=== PATIENT | male | born 1960 | race Caucasian/White ===

== ENCOUNTER 2016-12-08 11:36 | Emergency (ER) | payer BC ==
[2016-12-08] MEDS ORDERED: Aspirin Low Dose CHEW TAB* 81 MG PO ONE (12:21)
[2016-12-08 13:11] LABS: Hematocrit 45 % (42-52); Hemoglobin 15.2 g/dl (14.0-18.0); Mean Corpuscular HGB Conc 34 g/dl (31-36); Mean Corpuscular Hemoglobin 34 pg (27-31); Mean Corpuscular Volume 100 fL (80-94); Mean Platelet Volume 8 um3 (7.4-10.4); Red Blood Count 4.48 10^6/ul (4.0-5.4); Red Cell Distribution Width 13 % (10.5-15); White Blood Count 5.5 10^3/ul (3.5-10.8)
--- NOTE | 2016-12-08 13:12 | RAD ---
Indication: Chest pain. Sensation of something in the throat. Profuse diaphoresis. Comparison: November 14, 2012 chest radiograph and September 30, 2010 CT. Technique: Upright AP 1240 hours Report: Clear lungs and pleural spaces. Negative for pneumothorax. The heart, pulmonary vasculature, and mediastinal contours are unremarkable. Unremarkable osseous structures and soft tissue contours. IMPRESSION: No evidence for acute intrathoracic disease.
[2016-12-08 13:15] LABS: Add Diff/Slide Review? Slide Review Added; Comments Flag Yes
[2016-12-08 13:26] LABS: Albumin 3.8 g/dL (3.2-5.2); BUN/Creatinine Ratio 11.1 (8-20); Calcium 8.9 mg/dL (8.6-10.3); EGFR African American 113.1 (>60); EGFR Non-African American 87.9 (>60); Globulin 3.4 g/dL (2-4); Magnesium 1.9 mg/dL (1.9-2.7); Total Bilirubin 0.8 mg/dL (0.2-1.0); Total Protein 7.2 g/dL (6.4-8.9)
[2016-12-08 13:28] LABS: Troponin I 0.01 ng/mL (<0.04)
[2016-12-08 13:53] LABS: TSH (Thyroid Stimulating Horm) 2.37 mcIU/mL (0.34-5.60)
[2016-12-08 14:56] LABS: T4 4.68 mcg/mL (6.09-12.23)
[2016-12-08 16:20] VITALS: BP 153/85
--- NOTE | 2016-12-08 20:45 | ED ---
Terry Avila Billy, scribed for Ulises Eugene MD on 12/08/16 at 1219 . HPI Chest Pain - HPI Summary HPI Summary: Patient is a 56 year-old male coming to [facility] for evaluation of sternal chest pressure this morning at 1030. The pressure is non-radiating. Positive diaphoresis, denies shortness of breath, nausea, or vomiting. He states that the symptoms felt similar to previous episodes of GERD, although he normally does not have diaphoresis with GERD. The symptoms lasted until he was picked up by the ambulance. He was given 3x ASA en route. At this time, the pressure has completely resolved, but it was 3/10 severity at onset. PMHx is significant for previous MD in 2010. - History of Current Complaint Chief Complaint: EDChestPainROMI Time Seen by Provider: 12/08/16 12:12 Hx Obtained From: Patient Onset/Duration: Started Hours Ago Time of Onset: 10:30 Timing: Lasting Minutes Initial Severity: Moderate Chest Pain Location: Mid Sternal Chest Pain Radiates: No Character: Pressure/Squeezing Aggravating Factor(s): Nothing Alleviating Factor(s): Spontaneous Resolution Associated Signs and Symptoms: Positive: Chest Pain, Diaphoresis. Negative: Shortness of Breath, Nausea, Vomiting - Allergy/Home Medications Allergies/Adverse Reactions: Allergies Allergy/AdvReac Type Severity Reaction Status Date / Time No Known Allergies Allergy Verified 07/30/12 11:49 PMH/Surg Hx/FS Hx/Imm Hx Endocrine/Hematology History: Reports: Hx Anticoagulant Therapy Denies: Hx Diabetes, Hx Thyroid Disease Cardiovascular History: Reports: Hx Myocardial Infarction Denies: Hx Hypertension, Hx Pacemaker/ICD Respiratory History: Reports: Hx Chronic Obstructive Pulmonary Disease (COPD), Other Respiratory Problems/Disorders - COPD Denies: Hx Asthma GI History: Reports: Hx Gastroesophageal Reflux Disease History: Denies: Hx Renal Disease Neurological History: Denies: Hx Dementia, Hx Seizures Psychiatric History: Denies: Hx Substance Abuse Infectious Disease History: No Infectious Disease History: Denies: Hx Hepatitis, Hx Human Immunodeficiency Virus (HIV), Traveled Outside the [place] in Last 30 Days - Family History Known Family History: Positive: Diabetes - Social History Alcohol Use: Occasionally Substance Use Type: Reports: None Smoking Status (MU): Current Every Day Smoker Review of Systems Positive: Skin Diaphoresis Positive: Chest Pain Negative: Shortness Of Breath Negative: Vomiting, Nausea All Other Systems Reviewed And Are Negative: Yes Physical Exam - Summary Physical Exam Summary: VITAL SIGNS: Reviewed. GENERAL: Patient is a well developed and nourished female who is lying comfortable in the stretcher. Patient is not in any acute respiratory distress. HEAD AND FACE: No signs of trauma. No ecchymosis, hematomas or skull depressions. No sinus tenderness. EYES: PERRLA, EOMI x 2, No injected conjunctiva, no nystagmus. EARS: Hearing grossly intact. Ear canals and tympanic membranes are within normal limits. MOUTH: Oropharynx within normal limits. NECK: Supple, trachea is midline, no adenopathy, no JVD, no carotid bruit, no c- spine tenderness, neck with full ROM. CHEST: Symmetric, no tenderness at palpation LUNGS: Clear to auscultation bilaterally. No wheezing or crackles. CVS: Regular rate and rhythm, S1 and S2 present, no murmurs or gallops appreciated. ABDOMEN: Soft, non-tender. No signs of distention. No rebound no guarding, and no masses palpated. Bowel sounds are normal. EXTREMITIES: FROM in all major joints, no edema, no cyanosis or clubbing. NEURO: Alert and oriented x 3. No acute neurological deficits. Speech is normal and follows commands. SKIN: Dry and warm Triage Information Reviewed: Yes Vital Signs On Initial Exam: Initial Vitals Temp Pulse Resp BP Pulse Ox 98 F 72 18 144/72 100 12/08/16 11:36 12/08/16 11:36 12/08/16 11:36 12/08/16 11:36 12/08/16 11:36 Vital Signs Reviewed: Yes Diagnostics - Vital Signs Vital Signs Temp Pulse Resp BP Pulse Ox 12/08/16 11:36 98 F 72 18 144/72 100 - Laboratory Lab Results: Lab Results 12/08/16 12/08/16 12/08/16 Range/Units 12:55 12:55 12:55 WBC 5.5 (3.5-10.8) 10^3/ul RBC 4.48 (4.0-5.4) 10^6/ul Hgb 15.2 (14.0-18.0) g/dl Hct 45 (42-52) % MCV 100 H (80-94) fL MCH 34 H (27-31) pg MCHC 34 (31-36) g/dl RDW 13 (10.5-15) % Plt Count 98 L (150-450) 10^3/ul MPV 8 (7.4-10.4) um3 Neut % (Auto) 66.8 (38-83) % Lymph % (Auto) 24.0 L (25-47) % [place] % (Auto) 7.8 (1-9) % Eos % (Auto) 0.7 (0-6) % Baso % (Auto) 0.7 (0-2) % Absolute Neuts (auto) 3.7 (1.5-7.7) 10^3/ul Absolute Lymphs (auto) 1.3 (1.0-4.8) 10^3/ul Absolute Monos (auto) 0.4 (0-0.8) 10^3/ul Absolute Eos (auto) 0 (0-0.6) 10^3/ul Absolute Basos (auto) 0 (0-0.2) 10^3/ul Absolute Nucleated RBC 0 10^3/ul Nucleated RBC % 0 INR (Anticoag Therapy) 0.90 (0.89-1.11) APTT 29.3 (26.0-36.3) seconds Sodium 132 L (133-145) mmol/L Potassium 4.0 (3.5-5.0) mmol/L Chloride 105 (101-111) mmol/L Carbon Dioxide 26 (22-32) mmol/L Anion Gap 1 L (2-11) mmol/L BUN 10 (6-24) mg/dL Creatinine 0.90 (0.67-1.17) mg/dL Est GFR ( Amer) 113.1 (>60) Est GFR (Non-Af Amer) 87.9 (>60) BUN/Creatinine Ratio 11.1 (8-20) Glucose 81 (70-100) mg/dL Lactic Acid (0.5-2.0) mmol/L Calcium 8.9 (8.6-10.3) mg/dL Magnesium 1.9 (1.9-2.7) mg/dL Total Bilirubin 0.80 (0.2-1.0) mg/dL AST 36 (13-39) U/L ALT 21 (7-52) U/L Alkaline Phosphatase 51 (34-104) U/L Total Creatine Kinase 192 (10-223) U/L CK-MB (CK-2) 1.5 (0.6-6.3) ng/mL Troponin I 0.01 (<0.04) ng/mL B-Natriuretic Peptide ( - 100) pg/mL Total Protein 7.2 (6.4-8.9) g/dL Albumin 3.8 (3.2-5.2) g/dL Globulin 3.4 (2-4) g/dL Albumin/Globulin Ratio 1.1 (1-3) TSH 2.37 (0.34-5.60) mcIU/mL Thyroxine (T4) 4.68 L (6.09-12.23) mcg/mL 12/08/16 12/08/16 Range/Units 12:55 12:55 WBC (3.5-10.8) 10^3/ul RBC (4.0-5.4) 10^6/ul Hgb (14.0-18.0) g/dl Hct (42-52) % MCV (80-94) fL MCH (27-31) pg MCHC (31-36) g/dl RDW (10.5-15) % Plt Count (150-450) 10^3/ul MPV (7.4-10.4) um3 Neut % (Auto) (38-83) % Lymph % (Auto) (25-47) % [place] % (Auto) (1-9) % Eos % (Auto) (0-6) % Baso % (Auto) (0-2) % Absolute Neuts (auto) (1.5-7.7) 10^3/ul Absolute Lymphs (auto) (1.0-4.8) 10^3/ul Absolute Monos (auto) (0-0.8) 10^3/ul Absolute Eos (auto) (0-0.6) 10^3/ul Absolute Basos (auto) (0-0.2) 10^3/ul Absolute Nucleated RBC 10^3/ul Nucleated RBC % INR (Anticoag Therapy) (0.89-1.11) APTT (26.0-36.3) seconds Sodium (133-145) mmol/L Potassium (3.5-5.0) mmol/L Chloride (101-111) mmol/L Carbon Dioxide (22-32) mmol/L Anion Gap (2-11) mmol/L BUN (6-24) mg/dL Creatinine (0.67-1.17) mg/dL Est GFR ( Amer) (>60) Est GFR (Non-Af Amer) (>60) BUN/Creatinine Ratio (8-20) Glucose (70-100) mg/dL Lactic Acid 0.7 (0.5-2.0) mmol/L Calcium (8.6-10.3) mg/dL Magnesium (1.9-2.7) mg/dL Total Bilirubin (0.2-1.0) mg/dL AST (13-39) U/L ALT (7-52) U/L Alkaline Phosphatase (34-104) U/L Total Creatine Kinase (10-223) U/L CK-MB (CK-2) (0.6-6.3) ng/mL Troponin I (<0.04) ng/mL B-Natriuretic Peptide 30 ( - 100) pg/mL Total Protein (6.4-8.9) g/dL Albumin (3.2-5.2) g/dL Globulin (2-4) g/dL Albumin/Globulin Ratio (1-3) TSH (0.34-5.60) mcIU/mL Thyroxine (T4) (6.09-12.23) mcg/mL Result Diagrams: 12/08/16 12:55 12/08/16 12:55 Lab Statement: Any lab studies that have been ordered have been reviewed, and results considered in the medical decision making process. - Radiology CXR Xray Interpretation: No Acute Changes Radiology Interpretation Completed By: Radiologist - EKG 1141 EKG Interpretation: sinus bradycardia 58 bpm, no STEMI Chest Pain Course/Dx - Course Assessment/Plan: Patient is a 56 year-old male coming to [facility] for evaluation of sternal chest pressure this morning at 1030. The pressure is non-radiating. Positive diaphoresis, denies shortness of breath, nausea, or vomiting. He states that the symptoms felt similar to previous episodes of GERD, although he normally does not have diaphoresis with GERD. The symptoms lasted until he was picked up by the ambulance. He was given 3x ASA en route. At this time, the pressure has completely resolved, but it was 3/10 severity at onset. PMHx is significant for previous MD in 2010. Test results WNL except for sodium of 132. CXR shows no acute intrathoracic disease. Troponin #1 is 0.01, troponin #2 is 0.01. The patient continues to be asymptomatic. I believe that this patient is dealing with GERD instead of ACS. The patient has a history of MD and he reports that the symptoms today are different from his previous MD. He feels that it is more similar to GERD. Therefore he will be discharged home to follow up with PCP. He was recommended to return to the ED if he develops any other CP , SOB, dizziness, nausea, vomiting. I discussed all the findings and test results with the patient. Patient was instructed to return to the emergency room immediately if any of the symptoms return or worsens. Plan of care was discussed with the patient and understands and agrees. All questions were answered at patient satisfaction. There were no further complaints or concerns. Lung exam before discharge: CTA B/L. Good air exchange. No wheezing or crackles heard. CVS: S1 and S2 present. No murmurs appreciated. Patient is alert and oriented x 3. Patient is hemodynamically stable. Patient will be discharged home with follow up PCP in the next 2-3 days - Chest Pain Differential Diagnosis/HQI/PQRI: Acute MD, ACS, Angina, CHF, Chest Wall, GI Disease, Lower Respiratory Infection - Diagnoses Provider Diagnoses: Chest pain, GERD (gastroesophageal reflux disease) Discharge - Discharge Plan Condition: Stable Disposition: HOME Patient Education Materials: Chest Pain (ED), Gastroesophageal Reflux Disease ( ED) Referrals: Sarita Anderson MD [Primary Care Provider] - The documentation as recorded by the Terry antunez Billy accurately reflects the service I personally performed and the decisions made by me, Ulises Eugene MD.
== END 2016-12-08 16:32 | disposition home or self-care (01) ==
LOC: ED 11:36
DX: R07.9 Chest pain, unspecified (principal); K21.9 Gastro-esophageal reflux disease without esophagitis; I25.2 Old myocardial infarction; Z79.01 Long term (current) use of anticoagulants; J44.9 Chronic obstructive pulmonary disease, unspecified; F17.200 Nicotine dependence, unspecified, uncomplicated
CPT/HCPCS: 36415; 71010; 80053; 82550; 82553; 83605; 83735; 83880; 84436; 84443; 84484; 85025; 85610; 85730; 93005; 99283

== ENCOUNTER 2017-11-20 18:18 | Observation (INO) | payer BC ==
[2017-11-20] MEDS ORDERED: Aspirin 81 mg CHEW TAB* 81 MG TAB.CHEW PO ONE (18:56)
--- NOTE | 2017-11-20 19:14 | RAD ---
HISTORY: Chest pain COMPARISONS: December 08, 2016 VIEWS: 1: frontal portable view of the chest at 7:07 PM FINDINGS: LINES AND TUBES: None. CARDIOMEDIASTINAL SILHOUETTE: The cardiomediastinal silhouette is normal for portable technique. PLEURA: The costophrenic angles are sharp. No pleural abnormalities are noted. LUNG PARENCHYMA: The lungs are clear. ABDOMEN: The upper abdomen is clear. There is no subphrenic gas. BONES AND SOFT TISSUES: No bone or soft tissue abnormalities are noted. IMPRESSION: NO ACTIVE CARDIOPULMONARY DISEASE.
[2017-11-20 19:27] LABS: ABS Basophils 0.1 10^3/ul (0-0.2); ABS Eosinophils 0.1 10^3/ul (0-0.6); ABS Lymphocytes 1.9 10^3/ul (1.0-4.8); ABS Monocytes 0.5 10^3/ul (0-0.8); ABS Nucleated RBC 0 10^3/ul; Eosinophil % 1.5 % (0-6); Hematocrit 44 % (42-52); Hemoglobin 15.5 g/dl (14.0-18.0); Lymphocyte % 34.8 % (25-47); Mean Corpuscular HGB Conc 35 g/dl (31-36); Mean Corpuscular Hemoglobin 35 pg (27-31); Mean Corpuscular Volume 101 fL (80-94); Mean Platelet Volume 7.9 um3 (7.4-10.4); Nucleated Red Blood Cells % 0.1; Platelet Count 120 10^3/ul (150-450); Red Blood Count 4.41 10^6/ul (4.0-5.4); Red Cell Distribution Width 13 % (10.5-15); White Blood Count 5.6 10^3/ul (3.5-10.8)
[2017-11-20 19:40] LABS: EGFR Non-African American 94.9 (>60)
[2017-11-20] MEDS ORDERED: Al Hydrox/Mg Hydrox/Simet LIQ* 30 ML UDC PO PRN (21:14)
[2017-11-20] MEDS ORDERED: Albuterol 2.5 MG/3 ML NEB.SOL* (0.083%) INH PRN (21:14)
[2017-11-20] MEDS ORDERED: Acetaminophen TAB* 325 MG PO PRN (21:14)
[2017-11-20] MEDS ORDERED: Ondansetron INJ* 2 MG/ML VIAL IV PRN (21:14)
[2017-11-20] MEDS ORDERED: Mouth Piece, Nicotine* 1 EACH CARTRIDGE INH PRN (21:39)
--- NOTE | 2017-11-20 23:09 | HP ---
CC: Dr. Anderson; Dr. Rodriguez * HISTORY AND PHYSICAL: DATE OF ADMISSION: 11/20/17 PROVIDER: Shante Phillip NP CARDIOLOGY: Dr. Rodriguez. PRIMARY CARE PHYSICIAN: Dr. Anderson. ATTENDING PHYSICIAN WHILE IN THE HOSPITAL: Dr. Cynthia Roque * (dictated by Shante Phillip NP). CHIEF COMPLAINT: Chest pain. HISTORY OF PRESENT ILLNESS: Mr. Gordon is a 57-year-old male with past medical history significant for coronary artery disease with stenting in 2010, COPD, hyperlipidemia who presented to the emergency room today after developing chest pain at 2 p.m. 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 He denied any diaphoresis, nausea, or vomiting. He reports that the chest pain lasted for approximately 4 hours. The patient denies any other symptoms. He denies any recent sick contacts or recent illnesses. He does report that he has had a cough for the past couple of weeks. It has been productive with clear sputum and he has only had some shortness of breath just today. The patient does have a history of having an TN at age 52 with stenting in 2010. Due to his history and exertional chest pain the patient had today, we were asked by the emergency room to evaluate for admission. PAST MEDICAL HISTORY: Significant for: 1. Coronary artery disease with stenting in 2010. 2. COPD. 3. Hyperlipidemia. PAST SURGICAL HISTORY: 1. Stent placement in 2010. 2. Various hand repairs for lacerations of the fingers. HOME MEDICATIONS: Include: 1. Aspirin 81 mg p.o. daily. 2. [place] 3. 3. Spiriva. 4. Prilosec. 5. Toprol 12.5 mg p.o. daily. 6. Zocor 40 mg p.o. daily. ALLERGIES: He has allergy to PENICILLIN. FAMILY HISTORY: Brothers and sister with stent placement, diabetes. Father with diabetes. No reported cancer. SOCIAL HISTORY: The patient does smoke one and a half packs per day cigarettes. Alcohol: He does drink 6 beers a day. Denies any illicit drug use. He is currently and lives with his . In the event he is unable to make his own medical decisions, his surrogate decision maker is his , Sheryl Gordon. Her phone number is [phone]. He is a full code. REVIEW OF SYSTEMS: There is no documented fever. No significant weight change. There has been no double vision, no ear drainage. He denies any rhinorrhea. He denies any sore throat. He does report having chest pain. He denies any orthopnea or nocturnal dyspnea. Respiratory: He does report a cough x2 weeks with clear sputum production and reports some shortness of breath today. GI: Denies any nausea, vomiting, or diarrhea. Denies any abdominal pain. : Denies any hematuria or dysuria. Neuro: Denies any focal weakness or sensory loss. Eyes: No visual complaints. ENT: No dysphagia. Musculoskeletal: No arthralgias or myalgias. Skin: No rashes or lesions. Psych: Denies any depression or anxiety. PHYSICAL EXAMINATION GENERAL: At this time, Mr. Gordon is sitting on the stretcher in the emergency room. He does not appear to be in any acute distress. VITAL SIGNS: Temperature was 98.1, heart rate was 73, respirations 12, O2 saturations 96%, blood pressure 110/62. HEENT: Head is atraumatic, normocephalic. Eyes EOMs are intact. Sclerae anicteric and not pale. Oral mucosa appeared to be moist. NECK: Supple. LUNGS: Clear to auscultation bilaterally. No wheezes, rales, or rhonchi. CARDIAC: S1, S2. Regular rate and rhythm. There are no murmurs, rubs, or gallops. ABDOMEN: Soft and nontender. Bowel sounds are present x4. EXTREMITIES: There is no edema. Pulses are +2 pedal pulses and post tibial pulses bilaterally. He is moving all 4 extremities with 5/5 strength. NEUROLOGIC: He is alert and oriented x3. His speech is clear. There is no focal deficits. SKIN: Intact. LABORATORY DATA: WBCs are 5.6, RBCs are 4.41, hemoglobin was 15.5, hematocrit was 44, platelet count was 120. Sodium 136, potassium 3.9, chloride 104, carbon dioxide was 23, anion gap was 9, BUN 7, creatinine 0.84, ASTs were 40, ALTs were 23, lactic acid was 1.2, troponin was 0.00. Chest x-ray: Radiologist impression: No active cardiopulmonary disease. Lungs are clear. Electrocardiogram: Sinus rhythm at a rate of 64. ASSESSMENT AND PLAN: Mr. Gordon is a 57-year-old gentleman with a past medical history significant for coronary artery disease and stenting in 2010. He presented to the emergency room today with chest pain and some shortness of breath. He will be admitted under observation status for: 1. Chest pain: We will obtain serial troponins. We will get an EKG in the morning and do a nuclear exercise stress test given his history of coronary artery disease with stenting in 2010 and CHRISTY risk score for unstable angina and ST elevation myocardial infarction is 4 giving 20% risk 14 days of all ____ _ new or recurrent myocardial infarction or severe recurrent ischemia requiring urgent revascularization. 2. Coronary artery disease. We will continue on his Toprol 12.5 mg after his nuclear stress. 3. Hyperlipidemia. We will continue him on his Zocor 40 mg p.o. daily. 4. Tobacco abuse. We will place him on a nicotine inhaler. 5. FEN. He can be placed on a heart-healthy, no caffeine diet. 6. Code status. He is a full code. 7. DVT prophylaxis. He will be placed on heparin 5000 units subcu. 8. Disposition. He will be placed inpatient on observation. TIME SPENT: Time spent on this admission was approximately 60 minutes, greater than half that time was spent [id number] with the patient obtaining history and physical, the other half the time was spent going over the plan of care and implementing the plan of care. I have discussed this with my attending, Dr. Cynthia Roque, and she is in agreement with my plan. SHANTE PHILLIP, ROSALIND [id number]/[facility] #: [id number] BAMBI
[2017-11-20] MEDS: Heparin VIAL(*) 5000 UNITS/ML VIAL (FIVE THOUSAND) SUBCUT SCH (23:20)
[2017-11-20] MEDS: Nicotine Inhaler* 10 MG AMP INH PRN (23:21)
[2017-11-21] MEDS: Heparin VIAL(*) 5000 UNITS/ML VIAL (FIVE THOUSAND) SUBCUT SCH ×2 (05:29→14:18)
[2017-11-21 05:44] LABS: ABS Basophils 0 10^3/ul (0-0.2); ABS Eosinophils 0.1 10^3/ul (0-0.6); ABS Lymphocytes 1.7 10^3/ul (1.0-4.8); ABS Monocytes 0.5 10^3/ul (0-0.8); ABS Neutrophils 3.5 10^3/ul (1.5-7.7); ABS Nucleated RBC 0 10^3/ul; Eosinophil % 1.9 % (0-6); Hematocrit 45 % (42-52); Hemoglobin 15.5 g/dl (14.0-18.0); Lymphocyte % 29.2 % (25-47); Mean Corpuscular HGB Conc 35 g/dl (31-36); Mean Corpuscular Hemoglobin 35 pg (27-31); Mean Corpuscular Volume 101 fL (80-94); Mean Platelet Volume 8.3 um3 (7.4-10.4); Nucleated Red Blood Cells % 0; Platelet Count 117 10^3/ul (150-450); Red Blood Count 4.44 10^6/ul (4.0-5.4); Red Cell Distribution Width 13 % (10.5-15); White Blood Count 5.9 10^3/ul (3.5-10.8)
[2017-11-21 06:05] LABS: EGFR Non-African American 68.8 (>60)
[2017-11-21 07:59] VITALS: BP 107/63
[2017-11-21] MEDS ORDERED: Metoprolol Succinate XL TAB* 25 MG PO SCH (09:00)
[2017-11-21] MEDS ORDERED: Spiriva Inhaler DEVICE* 1 EACH DEVICE INH ONE (09:00)
[2017-11-21] MEDS ORDERED: Aspirin EC TAB* 81 MG TAB.EC PO SCH (09:00)
[2017-11-21] MEDS ORDERED: Omeprazole CAP* 20 MG PO SCH (09:00)
[2017-11-21] MEDS ORDERED: Tiotropium CAP.INH* CAP.INH/18 MCG (USE ORDER SET !) INH SCH (09:00)
[2017-11-21] MEDS: Nicotine Inhaler* 10 MG AMP INH PRN ×2 (09:37→14:22)
--- NOTE | 2017-11-21 13:07 | RAD ---
Edited for charges. INDICATION: Chest pain, shortness of breath, hypertension, elevated cholesterol , tobacco use, family history of heart disease. COMPARISON: January 20, 2012 TECHNIQUE: 10.500 mCi of Tc-99m Myoview were administered IV. SPECT images of the heart were obtained. Later on the same day. Under the direction of Dr. Rodriguez, an exercise stress test was performed. The patient achieved a peak heart rate of 145 bpm, 88 % of the age- predicted maximum. Subsequently, the patient was given an IV injection of 25.800 mCi Tc- 99m Myoview. SPECT images of the heart were obtained and a gated wall motion study was performed. FINDINGS: Gated wall motion images were obtained at stress and demonstrate wall motion to be within normal limits. The calculated left ventricular ejection fraction is 58 % at stress. Estimated LEFT ventricular end diastolic volume is 87 mL. TID 1.09. Based on review of the attenuation corrected and non corrected images the distribution of radiopharmaceutical within the myocardium on the stress and rest images is within normal limits. No fixed or reversible regions of hypoperfusion evident. IMPRESSION: 1. No evidence for stress induced myocardial ischemia or presence of an infarct. 2. Normal left ventricular wall motion and ejection fraction. ASSESSMENT: Low risk based on nuclear portion. Based on imaging criteria from ACC/AHA 2002 Guideline Update for the Management of Patients With Chronic Stable Angina Table 23. Noninvasive Risk Stratification. MTDD
[2017-11-21] MEDS ORDERED: Atorvastatin* 20 MG TAB PO SCH (21:00)
--- NOTE | 2017-11-22 10:11 | DS ---
AMENDED REPORT NOW INCLUDES COSIGNER DESIGNATION - ESIGNED BEFORE ADJUSTMENTS DISCHARGE SUMMARY: DATE OF ADMISSION: 11/20/17 DATE OF DISCHARGE: 11/21/17 HOSPITAL STATUS: Observation. PROVIDER: Benedicto Love NP. ATTENDING PHYSICIAN: Dr. Ang * (report dictated by Benedicto Love NP). PRIMARY CARE PROVIDER: Dr. Anderson. FLAME HARDENING MACHINE OPERATOR: Dr. Rodriguez. DISCHARGE DIAGNOSES: 1. Chest pain, unknown etiology. 2. Chronic obstructive pulmonary disease. 3. Tobacco abuse. SECONDARY DIAGNOSES: 1. Hyperlipidemia. 2. History of coronary artery disease, status post stenting in 2010. DISCHARGE MEDICATIONS: 1. Aspirin 81 mg p.o. daily. 2. [place] 3 supplementation. 3. Spiriva. 4. Prilosec. 5. Toprol 12.5 mg p.o. daily. 6. Zocor 40 mg p.o. daily. New Medications: 1. Nicotine patch 21 mcg/24 hours, 1 patch transderm daily to either be applied in the morning and removed at night or could wear 24 hours. I discussed this with the patient that leaving it on overnight could cause insomnia and vivid dreams. 2. Nicotine inhaler 10 mg INH q.2 hours p.r.n. HISTORY OF PRESENT ILLNESS AND HOSPITAL COURSE: Please see history and physical by Shante Phillip NP., for full admission details, but in summary, this is an 57- year-old male with a history of coronary artery disease, status post stenting in 2010, COPD and current tobacco abuse, who presented to the emergency department yesterday with complaint of chest pain. 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 Due to his history, he decided to come to the emergency department as it did not resolve. He reported more of a generalized chest tightness and shortness of breath, but denied chest pain or any radiation of pain to his arm or jaw. No diaphoresis, nausea or vomiting. He reported that the pain lasted for approximately 4 hours and due to the fact it did not resolve , he came to the emergency department. He was admitted to the hospitalist service, to the telemetry unit, for chest pain, rule out ACS. His troponins were trended, which were all flat at 0.00. He underwent a nuclear stress test, which placed him at low risk and showed no evidence for stress-induced myocardial ischemia or presence of an infarct, with a normal left ventricular wall motion and ejection fraction. Dr. Rodriguez performed his exercise stress test and reported no ischemic changes noted. I suspect the chest discomfort was more secondary to his COPD, with the exposure to the dust. 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 Initially, he was resistant to smoking cessation; however, on discharge we discussed it again and he agrees to attempt to quit smoking at this time and he has been prescribed long acting nicotine replacement with a patch, as well as a short acting with the inhaler. We discussed referral to [facility] for further smoking cessation education and support; however, he would like to do this through his primary care doctor. His was at the bedside and is supportive of him quitting. Currently, the patient offers no complaints. He has not had any return of chest discomfort. He denied shortness of breath. Occasional cough, but states that he has a cough at his baseline and reports he had a recent upper respiratory illness, but this appears to be resolving. He reports good appetite , no recent fevers or chills. He feels at his baseline and is ready to go home. PHYSICAL EXAMINATION: Vital Signs: Temperature was 98.6, heart rate 73, respirations 16, O2 saturations 94% on room air, blood pressure 107/63. General Appearance: A well-developed 57-year-old male, sitting on the side of the bed, alert and oriented x3, in no acute distress. HEENT: Head is normocephalic, atraumatic. Pupils are anicteric. Oropharynx is clear. Moist mucous membranes. Neck is supple. No JVD noted. Cardiac: S1 and S2. Regular rate and rhythm. No murmurs, rubs, or gallops appreciated. Lungs: Clear to auscultation bilaterally. Good aeration throughout. Abdomen: Soft, nontender, nondistended. Normal bowel sounds throughout. Extremities: No clubbing, cyanosis or edema. Moves all extremities equally. Strength is 5/5 throughout. Neuro: Cranial nerves II through XII are grossly intact. Psych: Appropriate to situation. LABORATORY DATA AND DIAGNOSTIC STUDIES: Sodium 139, potassium 4.1, chloride 104 , carbon dioxide 26, anion gap 9, BUN 14, creatinine 1.11, glucose 89, lactic acid 1.2, calcium 9.1. Troponin 0.00, 0.00, and 0.01. AST 40, ALT 23, total protein 7.5, triglycerides 145, cholesterol 170, LDL 72, HDL 68. Chest x-ray, impression: No active cardiopulmonary disease. EKG: Sinus rhythm at the rate of 70. Nuclear cardiac stress test, impression: 1. No evidence for stress-induced myocardial ischemia or presence of an infarct. 2. Normal left ventricular wall motion ejection fraction. DISCHARGE PLAN: 1. The patient is to follow up with Dr. Anderson within the next week. 2. Smoking cessation. The patient has been given a month of nicotine patches. Per up-to-date guidelines, after 4 to 6 weeks of being on the 21 mcg, he is to be stepped down to the 14 mcg, then 7 mcg over several weeks to months. 3. I discussed with the patient wearing a mask to protect himself from fine dust in the barn with his history of COPD. I discussed with the patient that he most likely is more sensitive to this fine dust and it could increase his risks for exacerbation. TIME SPENT: Approximately 60 minutes were spent on this discharge. BENEDICTO LOVE NP [id number]/[facility] #: [id number] BAMBI
--- NOTE | 2017-11-27 08:48 | ED ---
Louie Avila Jennifer, scribed for Ge Stewart MD on 11/20/17 at 1900 . HPI Chest Pain - HPI Summary HPI Summary: The patient is a 57 year old male who presents with chest tightness for the past 1.5 months. The patient reports the tightness began today at 14:00 but denies any pain in the ED. He explains that walking and working out aggravates the pain. The patient adds that about 1.5 months ago, he sneezed and felt something pop. The patient additionally complains of a productive cough. He denies back pain and pain while breathing. The patient reports he took his baby aspirin today. - History of Current Complaint Chief Complaint: EDChestPainROMI Time Seen by Provider: 11/20/17 18:51 Hx Obtained From: Patient Onset/Duration: Started Weeks Ago - 6 weeks, Still Present Timing: Constant Initial Severity: Moderate Current Severity: Moderate Pain Intensity: 4 Pain Scale Used: 0-10 Numeric Chest Pain Location: Right Lateral Chest Pain Radiates: No Character: Tightness Aggravating Factor(s): Movement - Walking, working out Alleviating Factor(s): Nothing Associated Signs and Symptoms: Positive: Other: - Allergy/Home Medications Allergies/Adverse Reactions: Allergies Allergy/AdvReac Type Severity Reaction Status Date / Time Penicillins Allergy Rash Verified 11/20/17 19:24 Home Medications: Home Medications Aspirin EC TAB* [Ecotrin EC Low Dose 81 MG*] 81 mg PO DAILY 11/20/17 [History Confirmed 11/20/17] Metoprolol Succinate XL TAB* [Toprol XL TAB*] 12.5 mg PO QAM 11/20/17 [History Confirmed 11/20/17] Portage-3 Fatty Acids (Nf) [Fish Oil (NF)] 1,000 mg PO DAILY 11/20/17 [History Confirmed 11/20/17] Omeprazole CAP* [Prilosec CAP* 20 MG] 20 mg PO QAM 11/20/17 [History Confirmed 11/20/17] Simvastatin (NF) [Zocor (NF)] 40 mg PO DAILY 11/20/17 [History Confirmed ] Tiotropium CAP.INH* [Spiriva CAP.INH*] 1 cap.inh INH DAILY 11/20/17 [History Confirmed 11/20/17] PMH/Surg Hx/FS Hx/Imm Hx Endocrine/Hematology History: Reports: Hx Anticoagulant Therapy Denies: Hx Diabetes, Hx Thyroid Disease Cardiovascular History: Reports: Hx Myocardial Infarction, Other Cardiovascular Problems/Disorders - 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 Denies: Hx Hypertension, Hx Pacemaker/ICD Respiratory History: Reports: Hx Chronic Obstructive Pulmonary Disease (COPD), Other Respiratory Problems/Disorders - COPD Denies: Hx Asthma GI History: Reports: Hx Gastroesophageal Reflux Disease History: Denies: Hx Renal Disease Neurological History: Denies: Hx Dementia, Hx Seizures Psychiatric History: Denies: Hx Substance Abuse Infectious Disease History: No Infectious Disease History: Denies: Hx Hepatitis, Hx Human Immunodeficiency Virus (HIV), Traveled Outside the [place] in Last 30 Days - Family History Known Family History: Positive: Diabetes - Social History Alcohol Use: Occasionally Alcohol Amount: 6 pk Substance Use Type: Reports: None Smoking Status (MU): Current Every Day Smoker Review of Systems Negative: Fever, Chills Negative: Erythema Negative: Sore Throat Positive: Chest Pain - Tightness Respiratory: Negative - Pain while breathing Positive: Cough - productive. Negative: Shortness Of Breath Negative: Abdominal Pain, Vomiting, Nausea Negative: dysuria, hematuria Negative: Myalgia, Edema Negative: Rash Neurological: Negative - Dizziness All Other Systems Reviewed And Are Negative: Yes Physical Exam - Summary Physical Exam Summary: Constitutional: Well-developed, Well-nourished, Alert. (-) Distressed Skin: Warm, Dry HENT: Normocephalic; Atraumatic Eyes: Conjunctiva normal Neck: Musculoskeletal ROM normal neck. (-) JVD, (-) Stridor, (-) Tracheal deviation Cardio: Rhythm regular, rate normal, Heart sounds normal; Intact distal pulses; The pedal pulses are 2+ and symmetric. Radial pulses are 2+ and symmetric. (-) Murmur Pulmonary/Chest wall: Effort normal. (-) Respiratory distress, (-) Wheezes, (-) Rales. No reproducible pain. Abd: Soft, (-) Tenderness, (-) Distension, (-) Guarding, (-) Rebound Musculoskeletal: (-) Edema Lymph: (-) Cervical adenopathy Neuro: Alert, Oriented x3 Psych: Mood and affect Normal Triage Information Reviewed: Yes Vital Signs On Initial Exam: Initial Vitals Temp Pulse Resp BP Pulse Ox 98.1 F 73 12 110/62 96 11/20/17 18:24 11/20/17 18:24 11/20/17 18:24 11/20/17 18:24 11/20/17 18:24 Vital Signs Reviewed: Yes Diagnostics - Vital Signs Vital Signs Temp Pulse Resp BP Pulse Ox 11/20/17 18:24 98.1 F 73 12 110/62 96 - Laboratory Result Diagrams: 11/20/17 19:10 11/20/17 19:10 Lab Statement: Any lab studies that have been ordered have been reviewed, and results considered in the medical decision making process. - Radiology CXR Xray Interpretation: No Acute Changes - NO ACTIVE CARDIOPULMONARY DISEASE. Dr. Stewart has reviewed this report. Radiology Interpretation Completed By: Radiologist - EKG 18:23 Cardiac Rate: NL EKG Rhythm: Sinus Rhythm - 64 BPM EKG Interpretation: no STEMI Chest Pain Course/Dx - Course Course Of Treatment: The patient is a 57 year old male who presents with chest tightness for the past 1.5 months. CXR and EKG were obtained. The patient is diagnosed with chest pain unspecified and angina. [place] [facility] [place] - Diagnoses Provider Diagnoses: Chest pain, unspecified, Angina at rest Discharge - Sign-Out/Discharge Documenting (check all that apply): Discharge/Admit/Transfer - Discharge Plan Condition: Good Disposition: ADMITTED TO [facility] Referrals: Sarita Anderson MD [Primary Care Provider] - Additional Instructions: Follow up with your primary care physician in three days. RETURN TO THE EMERGENCY DEPARTMENT FOR CHANGING OR WORSENING SYMPTOMS. The documentation as recorded by the Louie antunez Jennifer accurately reflects the service I personally performed and the decisions made by , Ge Stewart MD.
== END 2017-11-21 15:53 | disposition home or self-care (01) ==
LOC: ED 18:18 → MEDTELE 21:14
PROVIDERS: ADMIT Hospitalist; ATTEND Internal Medicine
DX: R07.9 Chest pain, unspecified (principal); J44.9 Chronic obstructive pulmonary disease, unspecified; F17.210 Nicotine dependence, cigarettes, uncomplicated; E78.5 Hyperlipidemia, unspecified; I25.10 Atherosclerotic heart disease of native coronary artery without angina pectoris; Z95.5 Presence of coronary angioplasty implant and graft; Z79.82 Long term (current) use of aspirin; Z79.899 Other long term (current) drug therapy; Z88.0 Allergy status to penicillin; R94.31 Abnormal electrocardiogram [ECG] [EKG]
CPT/HCPCS: 36415; 71045; 78452; 80048; 80053; 80061; 83605; 84484; 85025; 93005; 93017; 96372; 99284; 99406; A9270-GY; A9502; G0378; J1644

== ENCOUNTER 2019-09-01 08:17 | Emergency (ER) | payer BC ==
[2019-09-01] MEDS ORDERED: diPHENhydraMINE IV* 50 MG/ML 1 ml VIAL (BENADRYL) SLOW PUSH ONE (09:00)
[2019-09-01] MEDS ORDERED: Metoclopramide IV* 5 MG/ML 2 ML VIAL IV SLOW PU ONE (09:00)
--- NOTE | 2019-09-01 09:13 | ED ---
Headache - HPI Summary HPI Summary: Patient is a 59 y/o M presenting to the ED for a chief complaint of diffuse headache that began on 07/30/19. Patient is present with his . Patient rates his headache as a 9/10 in severity and is described as an aching sensation. Movement worsens the headache. He reports pain behind his eyes and bilateral ear aches. Patient also notes nasal congestion, rhinorrhea, occasional right-sided blurred vision, generalized weakness, and abdominal discomfort. Patient denies any fever, chills, erythema of eyes, sore throat, chest pain, shortness of breath, cough, nausea, vomiting, dysuria, hematuria, myalgia, neck pain, jaw pain, edema, rash, lightheadedness, or dizziness. Initially, his severe headaches began a few months ago. He denies any recent falls. His states that he fractured his jaw after a fall in the . At that time, he had an MRI that showed a cluster. In July 2019, he saw an non acoustic operator for his headaches and had a brain CT. He denies seeing a provider for his headaches. PMHx is significant for COPD, but he denies a history of headache or migraines. He admits daily alcohol use of about 10-12 drinks. - History Of Current Complaint Chief Complaint: EDHeadache Stated Complaint: HEADACHE/STOMACH ACHE PER PT Time Seen by Provider: 09/01/19 08:38 Hx Obtained From: Patient, Family/Teaching Supervisor - Onset/Duration: Sudden Onset, Still Present Initially Headache Was: Severe Currently Pain Is: Current Pain Scale(0-10)= - 9/10, Severe Timing: Constant Character: Migraine - Aching Location of Headache: Diffuse Aggravating Factor: Nothing Allevating Factors: Nothing Associated Signs And Symptoms: Visual Changes - Right-sided blurred vision - Allergies/Home Medications Allergies/Adverse Reactions: Allergies Allergy/AdvReac Type Severity Reaction Status Date / Time Penicillins Allergy Rash Verified 09/01/19 08:23 PMH/Surg Hx/FS Hx/Imm Hx Previously Healthy: Yes Endocrine/Hematology History: Reports: Hx Anticoagulant Therapy Denies: Hx Diabetes, Hx Thyroid Disease Cardiovascular History: Reports: Hx Angina, Hx Coronary Artery Disease, Hx Hypercholesterolemia, Hx Myocardial Infarction, Other Cardiovascular Problems/ Disorders - 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 Denies: Hx Hypertension, Hx Pacemaker/ICD, Hx Valvular Heart Disease Respiratory History: Reports: Hx Chronic Obstructive Pulmonary Disease (COPD), Other Respiratory Problems/Disorders - COPD Denies: Hx Asthma GI History: Reports: Hx Gastroesophageal Reflux Disease History: Denies: Hx Renal Disease Sensory History: Reports: Hx Contacts or Glasses Denies: Hx Legally Blind, Hx Deafness, Hx Hearing Aid Opthamlomology History: Reports: Hx Contacts or Glasses Denies: Hx Legally Blind EENT History: Denies: Hx Deafness Neurological History: Denies: Hx Dementia, Hx Seizures Psychiatric History: Denies: Hx Substance Abuse - Surgical History Surgical History: Yes Surgery Procedure, Year, and Place: hands - Immunization History Date of Tetanus Vaccine: unk Date of Influenza Vaccine: none Infectious Disease History: No Infectious Disease History: Denies: Hx Hepatitis, Hx Human Immunodeficiency Virus (HIV), Traveled Outside the [place] in Last 30 Days - Family History Known Family History: Positive: Diabetes - Social History Occupation: Employed Full-time Lives: With Family Alcohol Use: Daily Alcohol Amount: 10-12 beers/day Hx Substance Use: No Substance Use Type: Reports: None Hx Tobacco Use: Yes Smoking Status (MU): Heavy Every Day Tobacco Smoker Type: Cigarettes Review of Systems Negative: Fever, Chills Positive: Blurred Vision - Right eye, Other - Positive bilateral eye pain. Negative: Erythema Positive: Ear Ache - Bilateral, Nasal Discharge, Other - Positive nasal congestion. Negative: Sore Throat Negative: Chest Pain Negative: Shortness Of Breath, Cough Positive: Abdominal Pain - Discomfort. Negative: Vomiting, Nausea Negative: dysuria, hematuria Negative: Myalgia - Negative neck or jaw pain, Edema Negative: Rash Neurological: Other - Negative dizziness or lightheadedness Positive: Headache - Diffuse, Weakness - Generalized All Other Systems Reviewed And Are Negative: Yes Physical Exam - Summary Physical Exam Summary: Constitutional: Well-developed, Well-nourished, Alert. (-) Distressed Skin: Warm, Dry HENT: Normocephalic; Atraumatic Eyes: Conjunctiva normal Neck: Musculoskeletal ROM normal neck. (-) JVD, (-) Stridor, (-) Tracheal deviation Cardio: Rhythm regular, rate normal, Heart sounds normal; Intact distal pulses; The pedal pulses are 2+ and symmetric. Radial pulses are 2+ and symmetric. (-) Murmur Pulmonary/Chest wall: Effort normal. (-) Respiratory distress, (-) Wheezes, (-) Rales Abd: Soft, (-) tenderness, (-) Distension, (-) Guarding, (-) Rebound Musculoskeletal: (-) Edema Lymph: (-) Cervical adenopathy Neuro: Alert, Oriented x3. Mildly tremulous. Psych: Mood and affect Normal Triage Information Reviewed: Yes Vital Signs On Initial Exam: Initial Vitals Temp Pulse Resp BP Pulse Ox 98.8 F 87 16 132/82 98 09/01/19 08:19 09/01/19 08:19 09/01/19 08:19 09/01/19 08:19 09/01/19 08:19 Vital Signs Reviewed: Yes - Sumanth Coma Scale Best Eye Response: 4 - Spontaneous Best Motor Response: 6 - Obeys Commands Best Verbal Response: 5 - Oriented Coma Scale Total: 15 Procedures - Sedation Patient Received Moderate/Deep Sedation with Procedure: No Diagnostics - Vital Signs Vital Signs Temp Pulse Resp BP Pulse Ox 09/01/19 08:19 98.8 F 87 16 132/82 98 - Laboratory Result Diagrams: 09/01/19 09:07 09/01/19 09:07 Lab Statement: Any lab studies that have been ordered have been reviewed, and results considered in the medical decision making process. - Radiology Chest X-ray Radiology Interpretation Completed By: Radiologist Summary of Radiographic Findings: Chest X-ray IMPRESSION: NO EVIDENCE FOR ACTIVE CARDIOPULMONARY DISEASE. Reviewed by Dr. Stewart. - CT Brain CT CT Interpretation Completed By: Radiologist Summary of CT Findings: Brain CT IMPRESSION: FOCAL AREA OF INTRACRANIAL HEMORRHAGE INVOLVING THE LEFT TEMPORAL LOBE ANDvADJACENT LEFT FRONTAL LOBE AT THE LOCATION OF THE PREVIOUSLY DESCRIBED AVM. Reviewed by Dr. Stewart. - EKG 08:33 Cardiac Rate: NL - 71 BPM EKG Rhythm: Sinus Rhythm ST Segment: Normal Ectopy: None Summary of EKG Findings: EKG at 08:33 shows normal sinus rhythm with 71 BPM, no STEMI. Reviewed and interpreted by Dr. Stewart. Headache Course/Dx - Course Course Of Treatment: Patient is a 59 y/o M presenting to the ED for a chief complaint of diffuse headache that began on 07/30/19. Patient is present with his . Patient rates his headache as a 9/10 in severity and is described as an aching sensation. Movement worsens the headache. He reports pain behind his eyes and bilateral ear aches. Patient also notes nasal congestion, rhinorrhea, occasional right-sided blurred vision, generalized weakness, and abdominal discomfort. Patient denies any fever, chills, erythema of eyes, sore throat, chest pain, shortness of breath, cough, nausea, vomiting, dysuria, hematuria, myalgia, neck pain, jaw pain, edema, rash, lightheadedness, or dizziness. Initially, his severe headaches began a few months ago. He denies any recent falls. His states that he fractured his jaw after a fall in the . At that time, he had an MRI that showed a cluster. In July 2019, he saw an non acoustic operator for his headaches and had a brain CT. He denies seeing a provider for his headaches. PMHx is significant for COPD, but he denies a history of headache or migraines. He admits daily alcohol use of about 10-12 drinks. On exam, patient is mildly tremulous. In the ED course, patient was given Benadryl 25 mg SLOW PUSH, Reglan 10 mg IV SLOW, Keppra 1000 mg IVPB, and IV fluids. Laboratory abnormal findings: MCV 101, MCH 36, plt count 72, APTT 41.7, sodium 127, chloride 95, glucose 109, total bilirubin 1.10. Brain CT IMPRESSION: FOCAL AREA OF INTRACRANIAL HEMORRHAGE INVOLVING THE LEFT TEMPORAL LOBE ANDvADJACENT LEFT FRONTAL LOBE AT THE LOCATION OF THE PREVIOUSLY DESCRIBED AVM. Chest X-ray IMPRESSION: NO EVIDENCE FOR ACTIVE CARDIOPULMONARY DISEASE. EKG at 08:33 shows normal sinus rhythm with 71 BPM, no STEMI. At 10:05, Dr. Bahena reviewed the patient's case and recommends transfer to another facility. At 10:32, Health system indicated they did not have any neuro ICU beds. At 10:47, Dr. Addi Andrew at [facility] agrees to accept the patient as an ED-to-ED transfer. He recommends a target blood pressure below 140 and Keppra 1 gm IV. Patient will be transferred to [facility] due to the patient requiring a higher level of care not available at [facility] with a diagnosis of rupture anteriovenous malformation and intracranial hemorrhage. - Diagnoses Provider Diagnoses: Arteriovenous malformation (AVM), Intracranial hemorrhage - Physician Notifications Discussed Care Of Patient With: Saroj Bahena - At 10:05, Dr. Bahena reviewed the patient's case and recommends transfer to another facility. At 10: 32, Health system indicated they did not have any neuro ICU beds. At 10:47, Dr. Addi Andrew at [facility] agrees to accept the patient as an ED-to-ED transfer. He recommends a target blood pressure below 140 and Keppra 1 gm IV. Time Discussed With Above Provider: 10:05 Instructed by Provider To: Transfer Reason For Transfer: Patient not appropriate for [facility] Specialist unable to manage this patient. - Critical Care Time Critical Care Time: 30-74 min - 60 minutes Discharge ED - Sign-Out/Discharge Documenting (check all that apply): Patient Departure - Transfer - Discharge Plan Condition: Stable Disposition: TRANS HIGHER LVL OF CARE FAC Referrals: Sarita Anderson MD [Primary Care Provider] - - Attestation Statements Document Initiated by Scribe: Yes Documenting Scribe: Birgit Odell Provider For Whom Scribe is Documenting (Include Credential): Ge Stewart MD Scribe Attestation: Birgit Avila, scribed for Ge Stewart MD on 09/01/19 at 1050. Status of Scribe Document: Ready
[2019-09-01] MEDS ORDERED: NS 0.9% 1000 ML** 1,000 ML IV ONE (09:14)
[2019-09-01 09:20] LABS: Hematocrit 45 % (42-52); Hemoglobin 15.8 g/dL (14.0-18.0); Mean Corpuscular HGB Conc 35 g/dL (31-36); Mean Corpuscular Hemoglobin 36 pg (27-31); Mean Corpuscular Volume 101 fL (80-94); Red Blood Count 4.44 10^6 /uL (4.18-5.48); Red Cell Distribution Width 14 % (10-15); White Blood Count 5.2 10^3/uL (3.5-10.8)
[2019-09-01 09:32] LABS: Activated Partial Thrombo Time 41.7 seconds (26.0-38.0); INR 1.04 (0.82-1.09)
[2019-09-01 09:36] LABS: Albumin 4.1 g/dL (3.2-5.2); Albumin/Globulin Ratio 1.1 (1-3); BUN/Creatinine Ratio 9.2 (8-20); Calcium 9.6 mg/dL (8.6-10.3); EGFR African American 84.4 (>60); EGFR Non-African American 69.7 (>60); Globulin 3.7 g/dL (2-4); Potassium 4.1 mmol/L (3.5-5.0); Total Bilirubin 1.1 mg/dL (0.2-1.0); Total Protein 7.8 g/dL (6.4-8.9)
[2019-09-01 09:37] LABS: Troponin I 0.01 ng/mL (<0.03)
--- OUTSIDE RECORDS SUMMARY | 2019-09-01 09:55 | XMS REPORT | Continuity of Care Document ---
:1960 External Reference #:[id number] Author Name Evan Augustin M.D. Address [address] [place] [address] Care Team Providers Name Role Phone Sarita Anderson M.D. - Internal Medicine Care Team Information Convertible Power Shovel Operator Ashvin Garcia M.D. - Care Team Information Convertible Power Shovel Operator [phone] Cardiovascular Disease Problems Active Problems Provider Date Chronic obstructive lung disease Onset: Essential hypertension Onset: Hypercholesterolemia Onset: Myocardial infarction Onset: Note: 2010 Social History Type Date Description Comments Sex Unknown ETOH Use Occasionally consumes alcohol Tobacco Use Start: Unknown Heavy tobacco smoker (more than 10 1ppd cigarettes/day) Smoking Status Reviewed: 08/19/19 Heavy tobacco smoker (more than 10 1ppd cigarettes/day) Allergies, Adverse Reactions, Alerts Description No Known Drug Allergies Medications Active Medications SIG Qnty Indications Ordering Provider Date Omeprazole Sarita Anderson M.D. 20mg Capsules DR Sierra Handihaler Inhale The Contents Unknown Of One Capsule Via 18mcg Capsules Handihaler By Mouth Every Day Rosuvastatin Calcium Take One Tablet By Unknown Mouth Every Day 40mg Tablets Metoprolol Succinate Sarita Anderson M.D. ER 25mg Tablets ER 24HR Fish Oil 1 by mouth every Unknown 1000mg day Capsules Flax Seed Oil 2 by mouth every Unknown 1000mg day Capsules Immunizations Description No Information Available Vital Signs Description No Information Available Results Test Acquired Date Facility Test Result H/L Range Note Xray 07/24/[address] Head Or Brain <pending> (511)- - W/Contrast Procedures Date Code Description Status 08/19/2019 63758 Determination Of Refractive State Completed 08/19/2019 79571 Est Patient Intermediate Exam Completed 07/17/2019 97094 Scanning Computerized Ophthalmic Diagnostic Imag Posterior Completed Seg On 07/17/2019 24716 Visual Field Exam Extended Completed 07/17/2019 68864 New Patient Comprehensive Exam Completed Medical Devices Description No Information Available Encounters Description No Information Available Assessments Date Code Description Provider 08/19/2019 H53.40 Unspecified visual field defects Evan Augustin M.D. 08/19/2019 H25.13 Age-related nuclear cataract, bilateral Evan Augustin M.D. 07/17/2019 H53.40 Unspecified visual field defects Evan Augustin M.D. 07/17/2019 H25.13 Age-related nuclear cataract, bilateral Evan Augustin M.D. Plan of Treatment Future Appointment(s):02/17/2020 9:30 am - Evan Augustin M.D. at [facility] Lopez MD, 08/19/2019 - Evan Augustin M.D.H53.40 Unspecified visual field defectsComments:Smoking can increase the risk of developing or worsening any eye related disease, as well as affect your overall health. If you are a smoker , we strongly recommend that you quit.If you are not a smoker, we strongly recommend that you do not start. You have a visual field defect in both eyes. Furthertesting is often required to properly diagnose the cause of this. Please follow all of Dr. Augustin's instructions and keep all follow up appointments. KEEP YOUR FOLLOW UP WITH THE NEUROSURGEON FOR THE ENLARGED BLOOD VESSEL IN YOUR BRAIN.CALL WITH ANY NEW VISION CHANGESFollow up:6 Month Follow Up DFE You can expect to have your eyes dilated at your next visit. If Dr. Augustin orders any additional testing, it may require extra time. We recommend that you bring sunglasses, as dilation drops often make you light sensitive until they wear off. We always recommend you bring someone to drive you home if you are uncomfortable driving with your eyes dilated. If you have any questions before your next visit, feel free to call our office at .H25.13 Age- related nuclear cataract, bilateralComments:You have been diagnosed with cataracts. If you are happy with your vision as it is now, then we willsee you at your next scheduled appointment. If you feel like your vision is getting worse before your scheduled appointment, please call [facility] at [phone]. Functional Status Description No Information Available Mental Status Description No Information Available Referrals Refer to Dr Reason for Referral Status Appt Date Jethro Calderon MD, PhD ARTERIOVENOUS MALFORMATION Closed 10/07/2019 [facility] [address] [place] [address], [place] [address] [phone] Saroj Bahena ARTERIOVENOUS MALFORMATION Closed [address] [facility] [place] [address] [phone]
--- OUTSIDE RECORDS SUMMARY | 2019-09-01 09:55 | XMS REPORT | Continuity of Care Document ---
:1960 External Reference #:[id number] Author Name Evan Augustin M.D. Address [address] [place] [address] Care Team Providers Name Role Phone Sarita Anderson M.D. - Internal Medicine Care Team Information Stock Checkerer Ashvin Garcia M.D. - Care Team Information Stock Checkerer [phone] Cardiovascular Disease Problems Active Problems Provider Date Chronic obstructive lung disease Onset: Essential hypertension Onset: Hypercholesterolemia Onset: Myocardial infarction Onset: Note: 2010 Social History Type Date Description Comments Sex Unknown ETOH Use Occasionally consumes alcohol Tobacco Use Start: Unknown Heavy tobacco smoker (more than 10 1ppd cigarettes/day) Smoking Status Reviewed: 07/17/19 Heavy tobacco smoker (more than 10 1ppd [...] Vital Signs Description No Information Available Results Description No Information Available Procedures Description No Information Available Medical Devices Description No Information Available Encounters Description No Information Available Assessments Date Code Description Provider 07/17/2019 H53.40 Unspecified visual field defects Evan Augustin M.D. 07/17/2019 H25.13 Age-related nuclear cataract, bilateral Evan Augustin M.D. Plan of Treatment 07/17/2019 - Evan Augustin M.D.H53.40 Unspecified visual field defectsNew Xrays:CT Head Or Brain W/Contrast, Ordered: 07/17/19Comments:Smoking can increase the risk of developing or worsening any eye related disease, as well as affect your overall health. If you are a smoker, we strongly recommend that you quit.If you are not a smoker, we strongly recommend that you do not start. YOUR EYE EXAM IS HEALTHY SO I WILL ORDER A CT SCAN TO LOOK BEHIND THE EYE TO LOOK FOR A CAUSE FOR YOUR SYMPTOMSFollow up:1 Month Follow Up At your next visit, we are not planning to dilate your eyes. However, if you have any changes in your vision or new symptoms, there are certain situations that require us to dilate your eyes. If Dr. Augustin requests any additional testing , that may require extra time. If you have any questions before your next appointment, please call our office at .H25.13 Age-related nuclear cataract, bilateralComments:You have been diagnosed with cataracts. If you are happy with your vision as it is now, then we willsee you at your next scheduled appointment. If you feel like your vision is getting worse before your scheduled appointment, please call [facility] at [phone]. Functional Status Description No Information Available Mental Status Description No Information Available Referrals Description No Information Available
--- OUTSIDE RECORDS SUMMARY | 2019-09-01 09:55 | XMS REPORT | Continuity of Care Document ---
:1960 External Reference #:[id number] Author Name Evan Augustin M.D. Address [address] [place] [address] Care Team Providers Name Role Phone Sarita Anderson M.D. - Internal Medicine Care Team Information Junior Brand Manager Ashvin Garcia M.D. - Care Team Information Junior Brand Manager [phone] Cardiovascular Disease Problems Active Problems Provider Date [...] Patient Choice CT Head Or Brain <pending> (450)- - W/Contrast Procedures Date Code Description Status 07/17/2019 31204 Scanning Computerized Ophthalmic Diagnostic Imag Posterior Completed Seg On 07/17/2019 23217 Visual Field Exam Extended Completed 07/17/2019 39236 New Patient Comprehensive Exam Completed Medical Devices [...] eyes. If Dr. Augustin requests any additional testing, that may require extra time. If you [...] your scheduled appointment, please call Daja at [phone]. Functional Status Description No Information Available Mental Status Description No Information Available Referrals Refer to Reason for Referral Status Appt Date Jethro Calderon MD, PhD ARTERIOVENOUS MALFORMATION [facility] [address] [place] [address], [place] [address] [phone] Josef Vassilios ARTERIOVENOUS MALFORMATION Closed [address] [place] [address] [place] [address] [phone]
[2019-09-01 09:58] LABS: ABS Lymphocytes 1.2 10^3/ul (1.0-4.8); ABS Monocytes 0.5 10^3/ul (0-0.8); ABS Neutrophils 3.4 10^3/ul (1.5-7.7); Eosinophil % 0.4 %; Lymphocyte % 23.8 %; Mean Platelet Volume 8.5 fL (7.4-10.4); Platelet Count 72 10^3/uL (150-450)
[2019-09-01] MEDS ORDERED: levETIRAcetam 1000MG IVPREMIX* 1,000 MG/100 ML BAG IVPB ONE (10:44)
[2019-09-01 11:20] VITALS: BP 141/81
== END 2019-09-01 11:24 | disposition short-term general hospital (02) ==
LOC: ED 08:17
DX: Q27.30 Arteriovenous malformation, site unspecified (principal); I62.9 Nontraumatic intracranial hemorrhage, unspecified; J44.9 Chronic obstructive pulmonary disease, unspecified; I25.10 Atherosclerotic heart disease of native coronary artery without angina pectoris; E78.00 Pure hypercholesterolemia, unspecified; I25.2 Old myocardial infarction; K21.9 Gastro-esophageal reflux disease without esophagitis; F17.210 Nicotine dependence, cigarettes, uncomplicated; Z95.5 Presence of coronary angioplasty implant and graft; Z88.0 Allergy status to penicillin
CPT/HCPCS: 36415; 70450; 71045; 80053; 83605; 84484; 85025; 85060; 85610; 85730; 87040; 93005; 96361; 96365; 96375; 99285; J1200; J1953; J2765